=== PATIENT | female | born 1965 | race Caucasian/White ===

== ENCOUNTER → 2021-05-10 | Outpatient (CLI) | payer OTHER | LOC: RAD 13:34 | PROVIDERS: ATTEND Internal Medicine Cardiovascular Disease | DX: Z13.6 Encounter for screening for cardiovascular disorders (principal); I25.10 Atherosclerotic heart disease of native coronary artery without angina pectoris; E78.00 Pure hypercholesterolemia, unspecified ==

== ENCOUNTER → 2021-05-18 | Outpatient (CLI) | payer OTHER | LOC: SJCVCIMAG 09:05 | PROVIDERS: ATTEND Internal Medicine Cardiovascular Disease | DX: R06.00 Dyspnea, unspecified (principal); J12.82 Pneumonia due to coronavirus disease 2019 ==